=== PATIENT | male | born 1940 | race Caucasian/White ===

== ENCOUNTER → 2016-10-12 | Outpatient (CLI) | payer MEDICARE ==
--- NOTE | 2016-10-12 16:07 | RADRPT ---
EXAM DATE/TIME: 10/12/2016 13:23 [facility] COMPARISON: No previous studies available for comparison. INDICATIONS : Parkinsons disease. Unsteady gait. DOSE: 5.3 mCi Ioflupane Iodine-123 in 2.5 ml total volume MEDICATION(S): 130 mg Potasium Iodine PO one hour prior to injection SPECT IMAGIN.5 hrs. IMAGNG: SPECT/CT imaging with fusion was performed. RADIATION DOSE: 30.27 CTDIvol (mGy) MEDICAL HISTORY : Parkinson's. SURGICAL HISTORY : Cholecystectomy. Abdominal aortic aneurysm repair. Colostomy. Bilateral knee replacement, fatty tumo r removed and hernia repair. ENCOUNTER: Initial ACUITY: 1 month PAIN SCALE: 0/10 LOCATION: Head. TECHNIQUE: SPECT imaging of the brain was performed in sagittal, axial and coronal planes. Attenuation correctio n was performed with computed tomography and both the attenuation correction and non-attenuation dominga ected data sets were reviewed. FINDINGS: There is normal biodistribution of radionuclide with symmetric crescent-shaped areas of activity are in the striatum which appears distinct relative to the surrounding brain tissue. CONCLUSION: Normal dopamine transporter scan Ramírez Deleon MD on October 12, 2016 at 16:05 Board Certified Radiologist. This report was verified electronically.
== END ==
LOC: HRAD 08:16
DX: G20 Parkinson's disease (principal)
CPT/HCPCS: 78607; A9584

== ENCOUNTER 2017-12-06 10:00 | Inpatient (IN) | payer MEDICARE ==
[2017-12-06] VITALS (7 sets, daily range): BP systolic 138–166; BP diastolic 70–88; PULSE 57–72; RESP 16–18; TEMP 97.5–98.2; O2SAT 92–97
[~2017-12-06] VITALS: Ht 182.9 cm; Wt 122.1 kg
[2017-12-06] MEDS ORDERED: NEXI20CA PO (10:27)
[2017-12-06] MEDS ORDERED: VITA2000 PO (10:27)
[2017-12-06] MEDS ORDERED: CALC1TAB12 PO (10:27)
[2017-12-06] MEDS ORDERED: ROSU10 PO (10:27)
[2017-12-06] MEDS ORDERED: TERA10CA3 PO (10:27)
[2017-12-06] MEDS ORDERED: CARB25TA9 PO (10:27)
[2017-12-06] MEDS ORDERED: LEVO125T4 PO (10:27)
[2017-12-06] MEDS ORDERED: TAMS0.4C4 (10:27)
[2017-12-06] MEDS ORDERED: IBUP1TAB5 PO (10:27)
[2017-12-06] MEDS ORDERED: COEN400C (10:27)
[2017-12-06] MEDS ORDERED: MAGNESIUM HYDROXIDE SUSP 30 ML CUP PO PRN ×2 (10:30→17:30)
[2017-12-06] MEDS ORDERED: cloNIDine HCL 0.1 MG TAB PO PRN ×2 (10:30→17:30)
[2017-12-06] MEDS ORDERED: BISACODYL 10 MG SUPP RECTAL PRN ×2 (10:30→17:30)
[2017-12-06] MEDS ORDERED: SODIUM CHLORIDE 0.9% FLUSH 10 ML FLUSH IV FLUSH PRN (10:30)
[2017-12-06] MEDS ORDERED: ALUMINUM/MAGNESIUM/SIMETH 30 ML CUP PO PRN ×2 (10:30→17:30)
[2017-12-06] MEDS ORDERED: ONDANSETRON HCL 4 MG/2 ML VIAL IV PUSH PRN (10:30)
[2017-12-06] MEDS ORDERED: LACTULOSE SYRUP 20 GM/30 ML CUP PO PRN ×2 (10:30→17:30)
[2017-12-06] MEDS ORDERED: PROMETHAZINE INJ 25 MG/ML VIAL IM PRN (10:30)
[2017-12-06] MEDS ORDERED: SENNOSIDES 8.6 MG TAB PO PRN ×2 (10:30→17:30)
[2017-12-06] MEDS ORDERED: ACETAMINOPHEN 325 MG TAB PO PRN ×2 (10:30→17:30)
[2017-12-06] MEDS ORDERED: ceFAZolin 2 GM PREMIX 50 ML IV SCH (10:45)
[2017-12-06 10:46] LABS: AUTOMATED NEUTROPHIL # 6.2 TH/MM3 (1.8-7.7); BASOPHIL # 0.1 TH/MM3 (0-0.2); BASOPHIL % 0.6 % (0.0-2.0); EOSINOPHIL # 0.2 TH/MM3 (0-0.4); EOSINOPHIL % 2.7 % (0.0-4.0); HEMATOCRIT 38.8 % (39.0-51.0); HEMOGLOBIN 13.2 GM/DL (13.0-17.0); LYMPH % 17.8 % (9.0-44.0); LYMPHOCYTE # 1.6 TH/MM3 (1.0-4.8); MEAN CELL VOLUME 92.2 FL (80.0-100.0); MEAN CORPUSCULAR HEMOGLOBIN 31.4 PG (27.0-34.0); MEAN CORPUSCULAR HGB CONC 34.1 % (32.0-36.0); MEAN PLATELET VOLUME 8.6 FL (7.0-11.0); MONO % 9.1 % (0.0-8.0); MONOCYTE # 0.8 TH/MM3 (0-0.9); NEUT % 69.8 % (16.0-70.0); PLATELET COUNT 181 TH/MM3 (150-450); RED BLOOD COUNT 4.21 MIL/MM3 (4.50-5.90); WHITE BLOOD COUNT 8.9 TH/MM3 (4.0-11.0)
[2017-12-06 10:56] LABS: PROTHROMBIN TIME - PATIENT 10.6 SEC (9.8-11.6)
[2017-12-06] MEDS: SODIUM CHLOR 0.45% 1000 ML IV SCH (11:00)
[2017-12-06 11:04] LABS: BICARBONATE 29.4 MEQ/L (21.0-32.0); CALCIUM 9.1 MG/DL (8.5-10.1); CREATININE 0.95 MG/DL (0.60-1.30)
[2017-12-06] MEDS ORDERED: CEFAZOLIN INJ 2,000 MG in SODIUM CHLORIDE 0.9% INJ 100 ML IV SCH (11:15)
[2017-12-06] MEDS ORDERED: MIDAZOLAM HCL 2 MG/2 ML VIAL ONE (11:29)
[2017-12-06] MEDS: SODIUM CHLOR 0.9% 1000 ML INJ 1,000 ML IV SCH ×2 (12:45→23:43)
--- NOTE | 2017-12-06 13:04 | PD.RAD ---
Post Procedure Progress Note Pre Procedure Diagnosis: (1) Gait disturbance Post Procedure Diagnosis: (1) Gait disturbance Procedure Date: Dec 06, 2017 Supervising Radiologist: Garcia Kaufman JR Proceduralist/Assist: Mike Joseph RT(R), RT Columba(R) Anesthesia: Conscious Sedation Plan of Activity Patient to Unit: ROPU Patient Condition: Good See PACS Report for procedural detail/treatment Spinal Procedure Lumbar Drain T11 Fluid Description: Clear Findings: Catheter enters spinal canal at L3-4. Tip at T11-12 Jr. Mandeep,Garcia Mathur MD Dec 06, 2017 13:04
--- NOTE | 2017-12-06 14:10 | RADRPT ---
EXAM DATE/TIME: 12/06/2017 11:24 [facility] COMPARISON: No previous studies available for comparison. INDICATIONS : Patient in need of lumbar drain for normal pressure hydrocephalus evaluation. Gait disturbance. MEDICAL HISTORY : HTN CAD SURGIAL HISTORY : Hernia repair Bilat knee sx Gall bladder removal ENCOUNTER: Initial ACUITY: 3 months PAIN SCORE: 0/10 LOCATION: n/a LUMBAR PUNCTURE TIME: 11:54 hours FLUORO TIME: 2.0 minutes IMAGE SERIES: 0 SEDATION TIME: 15 minutes LEVEL: Tip of lumbar drain was placed at T11 DEVICE(S): 1.) 5 Cameroonian lumbar drain catheter PROCEDURE : 1. Fluoroscopically guided lumbar drain placement. 2. Conscious sedation with continuous EKG and oximetry monitoring. The risks, benefits and alternatives to the procedure were explained and verbal and written consent w as obtained. The site was prepped in sterile fashion. Full sterile technique was used, including ca p, mask, sterile gloves and gown and a large sterile sheet. Hand hygiene and 2% chlorhexidine and/or betadine/alcohol prep was utilized per protocol for cutaneous antisepsis. The skin and subcutaneous tissues were infiltrated with local anesthetic solution. With fluoroscopic guidance the lumbar thecal sac was punctured with a 14 gauge Touhy needle at the L3 -L4 level. A lumbar drain was placed with its tip at the T12 level and the catheter was sutured in pl karli. CSF was identified returning from the catheter at the termination of the procedure. Conscious sedation was performed with the prescribed dosages and duration as above in the presence of an independent trained radiology nurse to assist in the monitoring of the patient. EKG and oximetry remained stable throughout the procedure. The patient tolerated the procedure well and there were n o complications. The patient was sent to post anesthesia recovery in stable condition. CONCLUSION: Uncomplicated lumbar drain placement as above. Garcia Kaufman Jr., MD on December 06, 2017 at 14:07 Board Certified Radiologist. This report was verified electronically.
[2017-12-06] MEDS ORDERED: RESP: ALBUTEROL 2.5 MG/3 ML NEB (PRN) NEB (17:30)
[2017-12-06] MEDS ORDERED: ZOLPIDEM TARTRATE 5 MG TAB PO PRN (17:30)
[2017-12-06] MEDS: SODIUM CHLORIDE 0.9% FLUSH 10 ML FLUSH IV FLUSH SCH (20:08)
[2017-12-06] MEDS: DOCUSATE SODIUM 50 MG/SENNA 8.6 MG TAB PO SCH (20:08)
[2017-12-06] MEDS ORDERED: TERAZOSIN HCL 5 MG CAP PO SCH (21:00)
[2017-12-06] MEDS ORDERED: DOCUSATE SODIUM 50 MG/SENNA 8.6 MG TAB PO SCH (21:00)
[2017-12-06] MEDS: oxyCODONE/ACETAMINOPHEN 5 MG/325 MG TAB PO PRN (23:43)
[2017-12-07] VITALS: BP 155/74; PULSE 56; RESP 19; TEMP 98.2; O2SAT 95
[2017-12-07 04:00] VITALS: BP 152/70; PULSE 53; RESP 19; TEMP 97.7; O2SAT 97
[2017-12-07] MEDS ORDERED: LEVOTHYROXINE SODIUM 125 MCG TAB PO SCH (06:00)
[2017-12-07] MEDS: oxyCODONE/ACETAMINOPHEN 5 MG/325 MG TAB PO PRN (06:51)
[2017-12-07] MEDS: DOCUSATE SODIUM 50 MG/SENNA 8.6 MG TAB PO SCH (08:11)
[2017-12-07 08:14] VITALS: BP 155/90; PULSE 50; RESP 18; TEMP 97.6; O2SAT 96
[2017-12-07] MEDS: SODIUM CHLORIDE 0.9% FLUSH 10 ML FLUSH IV FLUSH SCH (08:28)
[2017-12-07] MEDS ORDERED: TAMSULOSIN HCL 0.4 MG CAP PO SCH (09:00)
[2017-12-07] MEDS ORDERED: PANTOPRAZOLE SOD 40 MG DELAYED RELEASE TAB PO SCH (09:00)
[2017-12-07] MEDS ORDERED: CARBIDOPA/LEVODOPA 25 MG/100 MG TAB PO SCH (09:00)
[2017-12-07] MEDS ORDERED: ATORVASTATIN 10 MG TAB PO SCH (09:00)
--- NOTE | 2017-12-07 09:53 | HHI.NSPN ---
History Chief Complaint: Difficulty walking in particular turning. Interval History 12/07/17: Pt underwent a temporary lumbar spinal drain on 12/06/17 for an evaluation of possible NPH with a predominant complaint of difficulty with walking and in particular turning with the feeling of his feet stuck to the door. Pt and Physical Therapy report he has had a dramatic improvement after the lumbar spinal drain was placed. Pt states occasional headache with drain in place. No radiculopathy or paresthesias in LEs. Review of Systems General: Negative for: fever, chills, insomnia Respiratory: Negative for: shortness of breath, cough, sputum Cardiovascular: Negative for: chest pain Gastrointestinal: Negative for: nausea, vomitting, diarrhea, constipation Exam Results Vital Signs Date Time Temp Pulse Resp B/P (MAP) Pulse Ox O2 Delivery O2 Flow Rate FiO2 12/07/17 08:14 97.6 50 18 155/90 (111) 96 12/06/17 10:38 Room Air Intake and Output 12/07/17 12/07/17 12/07/17 07:59 15:59 23:59 Output Total 1280 ml Balance -1280 ml Physical Examination General: Pt sitting up in chair with drain clamped. Eyes: Pupils equal. Sclera anicteric. Resp: CTA bilaterally Heart: NSR no murmurs Abd: Soft positive bs Skin: No cyanosis or erythema. Muscle: Moves LEs with good strength. PT and pt reported great improvement in his gait and in particular his ability to turn with much less magnetic feeling. Neuro: Pt awake and alert. Follows commands well. Speech clear and appropriate. Lab, Micro, Other Results Last Impressions Lumbar Puncture Fluoroscopy 12/06/17 0000 Signed Impressions: Service Date/Time: Wednesday, December 06, 2017 11:24 - CONCLUSION: Uncomplicated lumbar drain placement as above. Garcia Kaufman Jr., MD Laboratory Tests Test 12/06/17 10:30 White Blood Count 8.9 TH/MM3 Red Blood Count 4.21 MIL/MM3 Hemoglobin 13.2 GM/DL Hematocrit 38.8 % Mean Corpuscular Volume 92.2 FL Mean Corpuscular Hemoglobin 31.4 PG Mean Corpuscular Hemoglobin Concent 34.1 % Red Cell Distribution Width 13.0 % Platelet Count 181 TH/MM3 Mean Platelet Volume 8.6 FL Neutrophils (%) (Auto) 69.8 % Lymphocytes (%) (Auto) 17.8 % Monocytes (%) (Auto) 9.1 % Eosinophils (%) (Auto) 2.7 % Basophils (%) (Auto) 0.6 % Neutrophils # (Auto) 6.2 TH/MM3 Lymphocytes # (Auto) 1.6 TH/MM3 Monocytes # (Auto) 0.8 TH/MM3 Eosinophils # (Auto) 0.2 TH/MM3 Basophils # (Auto) 0.1 TH/MM3 CBC Comment DIFF FINAL Differential Comment Prothrombin Time 10.6 SEC Prothromb Time International Ratio 1.0 RATIO Activated Partial Thromboplast Time 23.8 SEC Blood Urea Nitrogen 13 MG/DL Creatinine 0.95 MG/DL Random Glucose 97 MG/DL Calcium Level 9.1 MG/DL Sodium Level 140 MEQ/L Potassium Level 4.2 MEQ/L Chloride Level 104 MEQ/L Carbon Dioxide Level 29.4 MEQ/L Anion Gap 7 MEQ/L Estimat Glomerular Filtration Rate 77 ML/MIN Medical Decision Making Impression and Plan A: 77 y/o M s/p temporary lumbar spinal drain placement for evaluation of possible NPH. P: Pt had a very positive response to lumbar spinal drain placement. We will discontinue lumbar spinal drain and keep on bedrest for 6 hours and d/c home. Pt will follow up in a week to discuss DIP UNIT OPERATOR shunt which I have already discussed with him today and he wants to proceed given his response. Addendum: Pt was placed on his side in bed. The lumbar spinal drain sutures were removed. The drain was removed and Steri strips were placed at the drain exit site. No further drainage was noted. Gauze and a bandage was placed to evaluate for drainage. Joseph Pascal Dec 07, 2017 9:53 am
[2017-12-07] MEDS: SODIUM CHLOR 0.45% 1000 ML IV SCH (11:00)
[2017-12-07 11:20] VITALS: BP 116/57; PULSE 62; RESP 18; TEMP 97.4; O2SAT 99
[2017-12-07 16:15] VITALS: BP 130/62; PULSE 60; RESP 20; TEMP 97.7; O2SAT 95
--- NOTE | 2017-12-07 16:22 | HHI.FF ---
Face to Face Verification Diagnosis: (1) Gait disturbance Physical Therapy Order: Evaluate and Treat, Improve ambulation, Strength and gait training Home Health Nursing Order: Nursing assessment with vital signs I have seen patient Ramírez Mckeon on 12/07/17. My clinical findings support the need for the requested home health care services because: Ltd mobility - disease progression Deconditioned w/ increased weakness High risk of falls I certify that my clinical findings support that this patient is homebound because: Unsteady gait/balance Unable to use public transportation Joseph Pascal Dec 07, 2017 4:22 pm
== END 2017-12-07 16:30 | disposition home health service (06) | DRG 57 ==
LOC: HRIP 10:00 → HROP 10:00 → HRIP 10:16 → HROP 14:00 → N05B 14:06
PROVIDERS: ADMIT Neurological Surgery; ATTEND Neurological Surgery
PROC: 009Y30Z Drainage of Lumbar Spinal Cord with Drainage Device, Percutaneous Approach (ICD-10-PCS; principal; 2017-12-06)
PROC: B01BZZZ Fluoroscopy of Spinal Cord (ICD-10-PCS; 2017-12-06)
DX: G91.2 (Idiopathic) normal pressure hydrocephalus (principal); R26.89 Other abnormalities of gait and mobility; I10 Essential (primary) hypertension; R51 Headache; I25.10 Atherosclerotic heart disease of native coronary artery without angina pectoris
CPT/HCPCS: 63741; 77003; 80048; 85025; 85610; 85730; 94150; 99152; C1755; J0690; J2250; J2405; J3010; J7030

== ENCOUNTER → 2018-01-02 | Outpatient (CLI) | payer MEDICARE ==
[~2018-01-02] MED LIST: CALC1TAB12 PO; CARB25TA9 PO; COEN400C; LEVO125T4 PO; NEXI20CA PO; ROSU10 PO; TAMS0.4C4; TERA10CA3 PO; VITA2000 PO
[2018-01-02 12:37] LABS: BASOPHIL % 0.5 % (0.0-2.0); EOSINOPHIL # 0.2 TH/MM3 (0-0.4); EOSINOPHIL % 2.3 % (0.0-4.0); HEMATOCRIT 38.2 % (39.0-51.0); HEMOGLOBIN 13.1 GM/DL (13.0-17.0); LYMPH % 19.7 % (9.0-44.0); LYMPHOCYTE # 1.5 TH/MM3 (1.0-4.8); MEAN CORPUSCULAR HEMOGLOBIN 31.2 PG (27.0-34.0); MEAN CORPUSCULAR HGB CONC 34.3 % (32.0-36.0); MEAN PLATELET VOLUME 8.8 FL (7.0-11.0); MONO % 10.1 % (0.0-8.0); MONOCYTE # 0.7 TH/MM3 (0-0.9); NEUT % 67.4 % (16.0-70.0); PLATELET COUNT 187 TH/MM3 (150-450); WHITE BLOOD COUNT 7.4 TH/MM3 (4.0-11.0)
[2018-01-02 12:44] LABS: INTERNATIONAL NORMALIZED RATIO 1.1 RATIO; PROTHROMBIN TIME - PATIENT 10.7 SEC (9.8-11.6)
[2018-01-02 12:56] LABS: ALBUMIN 3.9 GM/DL (3.4-5.0); ALT (GPT) 25 U/L (12-78); AST (GOT) 20 U/L (15-37); BICARBONATE 29.5 MEQ/L (21.0-32.0); BLOOD UREA NITROGEN 12 MG/DL (7-18); CALCIUM 9.5 MG/DL (8.5-10.1); CHLORIDE 102 MEQ/L (98-107); CREATININE 0.92 MG/DL (0.60-1.30); GLOMERULAR FILTRATION RATE 80 ML/MIN (>89); GLUCOSE,FASTING 85 MG/DL (74-99); SODIUM (NA) 139 MEQ/L (136-145)
[2018-01-02 12:59] LABS: ALKALINE PHOSPHATASE 63 U/L (45-117); TOTAL BILIRUBIN ADULT 0.4 MG/DL (0.2-1.0); TOTAL PROTEIN 8.1 GM/DL (6.4-8.2)
--- NOTE | 2018-01-02 13:27 | RADRPT ---
EXAM DATE/TIME: 01/02/2018 13:06 [facility] COMPARISON: No previous studies available for comparison. INDICATIONS : Evaluate for communicable diseases, pneumothorax, pneumonia. Preoperative examination for neurosurger y. MEDICAL HISTORY : None. SURGICAL HISTORY : None. ENCOUNTER: Initial ACUITY: 1 day PAIN SCORE: 0/10 LOCATION: Bilateral chest FINDINGS: PA and lateral views of the chest demonstrate the lungs to be symmetrically aerated without evidence of mass, confluent infiltrate or effusion. Mild streaky opacities noted in both lungs most consistent with scarring and/or fibrosis. The cardiomediastinal contours are unremarkable. Osseous structures are intact. CONCLUSION: 1. Mild streaky opacity in both lungs most characteristic of scarring and/or fibrosis. 2. No consolidation. Zacarias Claros MD on January 02, 2018 at 13:24 Board Certified Radiologist. This report was verified electronically.
--- NOTE | 2018-01-02 20:50 | EKG ---
Date Performed: 01/02/2018 Time Performed: 12:24:17 PTAGE: 77 years EKG: SINUS BRADYCARDIA WITH FIRST DEGREE AV BLOCK ABNORMAL ECG NO PREVIOUS TRACING DOCTOR: Solitario Goldsmith Interpretating Date/Time 01/02/2018 20:49:48
== END ==
LOC: CPRE 11:50
PROVIDERS: ATTEND Neurological Surgery
DX: Z01.810 Encounter for preprocedural cardiovascular examination (principal); Z01.812 Encounter for preprocedural laboratory examination; Z01.818 Encounter for other preprocedural examination; G91.2 (Idiopathic) normal pressure hydrocephalus; R94.31 Abnormal electrocardiogram [ECG] [EKG]
CPT/HCPCS: 36415; 71046; 80053; 85025; 85610; 85730; 93005

== ENCOUNTER 2018-01-04 06:10 | Inpatient (IN) | payer MEDICARE ==
--- NOTE | 2018-01-03 17:50 | MH ---
cc: Joseph Pascal Rohit K MD DATE OF ADMISSION: 01/04/2018 ADMITTING DIAGNOSIS: Normal pressure hydrocephalus. HISTORY OF PRESENT ILLNESS: This is a 77-year-old male who presented to us with complaints of difficulty with walking and poor balance for the last 2 years, although this has progressively worsened in the last 5 months. He states 6 months ago, he was able to golf, which he cannot do now. He denies any significant short-term memory loss, but has noticed urinary urgency. He had an MRI of the brain, which revealed moderate ventriculomegaly with periventricular white matter changes along with diffuse cerebral atrophy on 09/28/2017. He also underwent a temporary lumbar spinal drain and had significant improvement in his gait. The patient is wanting to proceed with a ventriculoperitoneal shunt placement. PAST MEDICAL HISTORY: Benign prostatic hypertrophy, hyperlipidemia, hypothyroidism, glaucoma. PAST SURGICAL HISTORY: Hernia mesh placement on 09/12/2013, knee surgery on 09/12/2012, removal of gallbladder, 2001. FAMILY HISTORY: Noncontributory to the patient's current condition. CURRENT MEDICATIONS: He is taking levothyroxine 125 mcg daily, Neupro 2 mg per 24 hours transdermal patch, ofloxacin 0.3% eyedrops, prednisolone 1% eyedrops, rosuvastatin 10 mg p.o. daily, Flomax 0.4 mg daily, terazosin 10 mg p.o. daily, Nexium 20 mg p.o. daily, ropinirole ER 2 mg extended release daily, vitamin D3 two capsules daily, CO-Q10 at 400 mg daily. ALLERGIES: FLU VACCINE. SOCIAL HISTORY: He is a former smoker. REVIEW OF SYSTEMS: CONSTITUTIONAL: He denies any fever or chills. EARS, NOSE AND THROAT: No pharyngitis, exudates or bloody drainage from his nose. CARDIOVASCULAR: He denies any chest pain or palpitations. RESPIRATORY: No cough or shortness of breath. GASTROINTESTINAL: No nausea, vomiting, abdominal pain. GENITOURINARY: No dysuria or hematuria. MUSCULOSKELETAL: He denies any weakness. Positive for difficulty with gait. NEUROLOGIC: Denies any difficulty with memory. He has difficulty with his gait. ENDOCRINE: No polyuria or polydipsia. HEMATOLOGIC: No bruising or bleeding tendencies. INTEGUMENTARY: No rashes or pruritus. PHYSICAL EXAMINATION: HEAD: Normocephalic, atraumatic. NECK: Supple. No carotid bruits LUNGS: Clear to auscultation bilaterally. HEART: Regular rate and rhythm. Normal S1, S2. ABDOMEN: Soft, nontender, positive bowel sounds. SKIN: Reveals no cyanosis or erythema. MUSCULOSKELETAL: He has 5/5 strength in the upper and lower extremities. He ambulates with a short shuffled gait that is magnetic, especially with trying to turn. NEUROLOGIC: He is awake, alert, and oriented. Cranial nerves 2-12 appear grossly intact. His speech is fluent. Comprehension is good. Sensation is intact in the upper and lower extremities. IMPRESSION: A 77-year-old male with complaints of difficulty walking and poor balance for the past 2 years ago, though progressively worse in the last 4 months. He does not have any short-term memory loss, but has noticed urinary urgency and difficulty with gait, especially magnetic features with turning. He had an MRI scan from 09/28/2017, which revealed moderate ventriculomegaly with periventricular white matter changes along with diffuse cerebral atrophy. He underwent temporary lumbar spinal drain and had significant improvement in his gait. PLAN: We have discussed treatment options with the patient and he is requesting that we proceed with a ventriculoperitoneal shunt placement. We have discussed the procedure as well as the risks, benefits, alternatives, and recovery time in great detail with the patient. We have discussed risks involved with surgery include but not limited to bleeding, infection, muscle weakness, voice hoarseness, difficulty swallowing, heart attack, stroke, blood clots, seizures, cerebral edema, among others. The patient states that he understands the procedure as well as the risks involved and he is requesting that we proceed. He is therefore scheduled accordingly. JAC Johnson/SURI , 05:16 PM , 05:49 PM
[~2018-01-04] VITALS: Ht 182.9 cm; Wt 124.0 kg
[~2018-01-04 06:10] MED LIST changes: -CALC1TAB12 PO; -CARB25TA9 PO
[2018-01-04] MEDS ORDERED: SODIUM CHLORIDE 0.9% 1000 ML IV SCH (06:30)
[2018-01-04] MEDS ORDERED: ACETAMINOPHEN 1000 MG/100 ML 0 ML IV ONE (06:34)
[2018-01-04] MEDS ORDERED: SODIUM CHLORID 0.9% 500 ML IV PRN (06:45)
[2018-01-04] MEDS ORDERED: METOPROLOL TARTRATE 25 MG TAB PO PRN (06:45)
[2018-01-04] MEDS ORDERED: POVIDONE IODINE 5% (ANTISEPSIS KIT) 4 APPLICATIONS EACH NARE PRN (06:45)
[2018-01-04] MEDS ORDERED: CHLORHEXIDINE GLUCONATE 2 % 1 PACK (2 CLOTHS) TOPICAL PRN (06:45)
[2018-01-04] MEDS ORDERED: LACTATED RINGER'S 1000 ML IV PRN (06:45)
[2018-01-04] MEDS ORDERED: VANCOMYCIN 1 GM/200 ML PREMIX IV SCH (06:45)
[2018-01-04] MEDS ORDERED: ACETAMINOPHEN 1000 MG/100 ML 100 ML IV ONE (06:54)
[2018-01-04] MEDS ORDERED: ARTIFICIAL TEARS OPTH OINT 3.5 APPLIC/3.5 GM TUBO ONE (07:04)
[2018-01-04] MEDS ORDERED: BUPIVACAINE/EPINEPHRINE 0.5% PF 30 ML VIAL ONE (07:10)
[2018-01-04] MEDS ORDERED: GELFOAM SIZE 100 ONE (07:10)
[2018-01-04] MEDS ORDERED: GENTAMICIN SULFATE 80 MG/2 ML VIAL ONE (07:10)
[2018-01-04] MEDS ORDERED: THROMBIN (TOPICAL) 5,000 UNIT VIAL ONE (07:10)
[2018-01-04] MEDS ORDERED: SUGAMMADEX SODIUM 200 MG/2 ML VIAL IV PUSH ONE (08:59)
[2018-01-04] MEDS ORDERED: NS + KCL 20 MEQ INJ 1,000 ML IV SCH (09:10)
[2018-01-04] MEDS ORDERED: PROMETHAZINE INJ 25 MG/ML VIAL IM PRN (09:15)
[2018-01-04] MEDS ORDERED: LORazepam 2 MG/ML VIAL IV PUSH PRN (09:15)
[2018-01-04] MEDS ORDERED: MORPHINE SULFATE 4 MG/ML INJ IV PUSH PRN (09:15)
[2018-01-04] MEDS ORDERED: ZOLPIDEM TARTRATE 5 MG TAB PO PRN (09:15)
[2018-01-04] MEDS ORDERED: MENTHOL LOZENGE BUCCAL PRN (09:15)
[2018-01-04] MEDS ORDERED: ONDANSETRON HCL 4 MG/2 ML VIAL IV PUSH PRN (09:15)
[2018-01-04] MEDS ORDERED: cloNIDine HCL 0.1 MG TAB PO PRN (09:15)
[2018-01-04] MEDS ORDERED: ACETAMINOPHEN/HYDROcodone 325 MG/10 MG TAB PO PRN ×2 (09:15)
[2018-01-04] MEDS ORDERED: MAGNESIUM HYDROXIDE SUSP 30 ML CUP PO PRN (09:15)
[2018-01-04] MEDS ORDERED: ALUMINUM/MAGNESIUM/SIMETH 30 ML CUP PO PRN (09:15)
[2018-01-04] MEDS ORDERED: BISACODYL 10 MG SUPP RECTAL PRN (09:15)
[2018-01-04] MEDS ORDERED: SENNOSIDES 8.6 MG TAB PO PRN (09:15)
[2018-01-04] MEDS ORDERED: RESP: ALBUTEROL 2.5 MG/3 ML NEB (PRN) NEB (09:15)
[2018-01-04] MEDS ORDERED: ACETAMINOPHEN 325 MG TAB PO PRN (09:15)
[2018-01-04] MEDS ORDERED: LACTULOSE SYRUP 20 GM/30 ML CUP PO PRN (09:15)
[2018-01-04] MEDS ORDERED: SODIUM CHLORIDE 0.9% FLUSH 10 ML FLUSH IV FLUSH PRN (09:15)
[2018-01-04] MEDS ORDERED: DEXAMETHASONE SOD PHOS 4 MG/ML VIAL IV ONE (10:03)
[2018-01-04] MEDS ORDERED: LIDOCAINE HCL 1% PF 5 ML SYRINGE OTHER ONE (10:03)
[2018-01-04] MEDS ORDERED: NEOSTIGMINE 5 MG/5 ML SYRINGE IV PUSH ONE (10:03)
[2018-01-04] MEDS ORDERED: ONDANSETRON HCL 4 MG/2 ML VIAL IV PUSH ONE (10:03)
[2018-01-04] MEDS ORDERED: PHENYLEPH/NS 1000 MCG/10 ML SYR IV ONE (10:03)
[2018-01-04] MEDS ORDERED: LACTATED RINGER'S 1000 ML INJ 1,000 ML IV ONE (10:03)
[2018-01-04] MEDS ORDERED: GLYCOPYRROLATE 1 MG/5 ML SYRINGE IV PUSH ONE (10:03)
[2018-01-04] MEDS ORDERED: PHENYLEPHRINE HCL 10 MG/ML VIAL IV ONE (10:03)
[2018-01-04] MEDS ORDERED: ePHEDrine/NS 25 MG/5 ML SYRINGE IV ONE (10:03)
[2018-01-04] MEDS ORDERED: ROCURONIUM INJ 50 MG/5 ML SYRINGE IV PUSH ONE (10:03)
[2018-01-04] MEDS ORDERED: PROPOFOL 200 MG/20 ML AMP IV ONE (10:03)
--- NOTE | 2018-01-04 10:28 | PD.OP ---
Jessy Martinez MD Operative Report Date of Surgery: Jan 04, 2018 Preoperative Diagnosis: Normal-pressure hydrocephalus Postoperative Diagnosis: Same Procedure: Right frontal ventriculoperitoneal shunt placement with Codman programmable valve Anesthesia: General endotracheal by Ricarda tomlinson Surgeon: Miah Roy MD Equipment Washer(s): Merly Duncan Operation and Findings: Following administration of general endotracheal anesthesia, patient was placed in a supine position and a Christiansen catheter placed along with sequential compression devices. Vancomycin 1 g was and administered intravenously. The head secured in donut and turned 30 to the left side and a shoulder roll placed in the right side and all pressure points adequately padded. The right frontal parietal occipital anterior neck and chest and abdomen area was shaved and prepped with a Betadine solution and Chloraprep. Draping with Ioban also undertaken along with the usual sterile draping. Using landmarks of 11 cm behind the nasion and 3 cm right of the midline a curvilinear right frontal incision was made after infiltrating the skin was 0.5% Marcaine with epinephrine solution. A mary jane hole was made with an automatic wood milling machine tender and the underlying dura cauterized with bipolar cautery and opened in a cruciate format. Right subcostal abdominal incision site was then infiltrated with 0.5% Marcaine with epinephrine solution and incision made extending down through the anterior fascia of the rectus sheath and then the posterior fascia also incised and the peritoneal wall identified and also incised in a 3-0 silk pursestring suture was been placed around the opening. A subcutaneous tunnel was then created between the frontal and the abdominal incision site with a small interim incision in the neck and the bactiseal Codman peritoneal catheter was then tunneled through. The catheter was connected to a [employer] Codman programmable valve set at 100 mm a water setting with the anti-siphon device. The ventricular catheter was then passed the 6 cm in depth and clear CSF encountered and this was then connected to the proximal reservoir valve with a 2 -0 silk tie. Good distal CSF flow run off was noted from the peritoneal catheter which was then dropped into the peritoneum and the pursestring suture was tied along with the approximation of the anterior rectus sheath with 3-0 Vicryl interposition and 3-0 Vicryl subcuticular cyst also place an interrupted fashion and final skin closure with steven. Incision sites were irrigated with the saline solution prior to closure. The right frontal and small neck incision areas were then also approximated with 3-0 Vicryl galeal stitches and steven. Sterile dressings then applied and the patient extubated and taken recovery room. There were no intraoperative complications and all sponge and needle, was correct at the end of the procedure. Estimated blood loss less than 25 cc. Miah Roy MD Jan 04, 2018 10:28
[2018-01-04] MEDS ORDERED: DO NOT ADM ANY ANTICOAGULANT DRUGS PRN (10:46)
[2018-01-04] MEDS ORDERED: VANCOMYCIN HCL 1000 MG VIAL ONE (10:51)
[2018-01-04] MEDS ORDERED: MIDAZOLAM HCL 2 MG/2 ML VIAL ONE (10:52)
[2018-01-04] MEDS ORDERED: SODIUM CHLOR 0.9% 250 ML INJ 250 ML ONE (10:52)
[2018-01-04] MEDS ORDERED: *morphine SULFATE 4 MG/ML PERIprocedure ONLY ONE ×3 (11:06→11:28)
[2018-01-04] MEDS ORDERED: HYDROmorphone HCL PF 0.5 MG/0.5 ML SYRINGE ONE (12:34)
--- NOTE | 2018-01-04 15:19 | RADRPT ---
EXAM DATE/TIME: 01/04/2018 14:47 [facility] COMPARISON: No previous studies available for comparison. INDICATIONS : Post op shunt placement RADIATION DOSE: 63.34 CTDIvol (mGy) MEDICAL HISTORY : SURGICAL HISTORY : Abdominal aortic aneurysm repair. ENCOUNTER: Initial ACUITY: 1 day PAIN SCALE: 3/10 LOCATION: cranial TECHNIQUE: Multiple contiguous axial images were obtained of the head. Using automated exposure control and adj ustment of the mA and/or kV according to patient size, radiation dose was kept as low as reasonably a chievable to obtain optimal diagnostic quality images. DICOM format image data is available electro nically for review and comparison. FINDINGS: CEREBRUM: Right frontal ventriculostomy catheter is in good position. Minimal pneumocephalus. Ventricle remain prominent in size. No evidence of midline shift, mass lesion, hemorrhage or acute infarction. No ex tra-axial fluid collections are seen. POSTERIOR FOSSA: The cerebellum and brainstem are intact. The 4th ventricle is midline. The cerebellopontine angle i s unremarkable. EXTRACRANIAL: The visualized portion of the orbits is intact. Maxillary sinus disease SKULL: The calvaria is intact. No evidence of skull fracture. CONCLUSION: Ventriculostomy catheter is in excellent position. No evidence of hemorrhage. Ventricles remain promi nent in size.. Ede Davis MD on January 04, 2018 at 15:15 Board Certified Radiologist. This report was verified electronically.
[2018-01-04 16:00] VITALS: BP 144/76; PULSE 65; RESP 18; TEMP 97.6; O2SAT 94
[2018-01-04 19:31] VITALS: BP 126/63; PULSE 68; RESP 16; TEMP 98.1; O2SAT 94; O2SAT 97
[2018-01-04] MEDS ORDERED: TAMSULOSIN HCL 0.4 MG CAP PO SCH (21:00)
[2018-01-04] MEDS ORDERED: TERAZOSIN HCL 5 MG CAP PO SCH (21:00)
[2018-01-04] MEDS ORDERED: SODIUM CHLORIDE 0.9% FLUSH 10 ML FLUSH IV FLUSH SCH (21:00)
[2018-01-04] MEDS: DOCUSATE SODIUM 50 MG/SENNA 8.6 MG TAB PO SCH (21:26)
[2018-01-04] MEDS: CHOLECALCIFEROL (VIT D3) 1000 UNIT TAB PO SCH (21:26)
[2018-01-05 00:45] VITALS: BP 130/62; PULSE 69; RESP 18; TEMP 98; O2SAT 97
[2018-01-05 03:29] VITALS: O2SAT 94
[2018-01-05] MEDS ORDERED: LEVOTHYROXINE SODIUM 125 MCG TAB PO SCH (06:00)
[2018-01-05 08:00] VITALS: BP 127/63; PULSE 52; RESP 21; TEMP 97.5; O2SAT 96
--- NOTE | 2018-01-05 08:54 | HHI.NSPN ---
History Chief Complaint: Unsteady gait. Interval History 01/05/18: Pt underwent a right FILM LOADER shunt placement on 01/04/18. He states he is feeling well. He felt a little unsteady with ambulating with walker but doing better than preop. No h/a, n/v. Review of Systems General: Negative for: fever, chills, insomnia Respiratory: Negative for: shortness of breath, cough, sputum Cardiovascular: Negative for: chest pain Gastrointestinal: Negative for: nausea, vomitting, diarrhea, constipation Exam Results Vital Signs Date Time Temp Pulse Resp B/P (MAP) Pulse Ox O2 Delivery O2 Flow Rate FiO2 01/05/18 03:29 94 Nasal Cannula 2.00 01/05/18 00:45 98.0 69 18 130/62 (84) Intake and Output 01/05/18 01/05/18 01/06/18 08:00 16:00 00:00 Intake Total 850 ml Output Total 3430 ml Balance -2580 ml Physical Examination General: Pt sitting up in chair in NAD. Eyes: Pupils equal. Sclera anicteric. Resp: CTA bilaterally Heart: NSR no murmurs Abd: Soft positive bs Skin: Incisions clean and dry. New bandages placed. Muscle: Moves all 4 extremities with symmetric strength. Neuro: Pt awake and alert. Sitting up in chair. Follows commands well. Speech clear and appropriate. Lab, Micro, Other Results Last Impressions Head CT 01/04/18 0000 Signed Impressions: Service Date/Time: Thursday, January 04, 2018 14:47 - CONCLUSION: Ventriculostomy catheter is in excellent position. No evidence of hemorrhage. Ventricles remain prominent in size.. Ede Davis MD Medical Decision Making Impression and Plan A: 77 y/o M s/p right FILM LOADER shunt for NPH P: Discharge pt home Keep incisions clean and dry. No pushing, pulling, lifting, carrying more than 5 pounds No driving. Encouraged frequent ambulation. Joseph Pascal Jan 05, 2018 8:54 am
[2018-01-05] MEDS ORDERED: ATORVASTATIN 20 MG TAB PO SCH (09:00)
[2018-01-05] MEDS ORDERED: PANTOPRAZOLE SOD 20 MG DELAYED RELEASE TAB PO SCH (09:00)
[2018-01-05] MEDS: DOCUSATE SODIUM 50 MG/SENNA 8.6 MG TAB PO SCH (09:18)
[2018-01-05] MEDS: CHOLECALCIFEROL (VIT D3) 1000 UNIT TAB PO SCH (09:18)
[2018-01-05 09:23] VITALS: O2SAT 94
== END 2018-01-05 10:04 | disposition home or self-care (01) | DRG 33 ==
LOC: HSDI 06:10 → N05B 14:59
PROVIDERS: ADMIT Neurological Surgery; ATTEND Neurological Surgery
PROC: 00160J6 Bypass Cerebral Ventricle to Peritoneal Cavity with Synthetic Substitute, Open Approach (ICD-10-PCS; principal; 2018-01-05)
DX: G91.2 (Idiopathic) normal pressure hydrocephalus (principal); G93.89 Other specified disorders of brain; G31.9 Degenerative disease of nervous system, unspecified; N40.1 Benign prostatic hyperplasia with lower urinary tract symptoms; E78.5 Hyperlipidemia, unspecified; E03.9 Hypothyroidism, unspecified; R39.15 Urgency of urination; R26.2 Difficulty in walking, not elsewhere classified; Z87.891 Personal history of nicotine dependence
CPT/HCPCS: 70450; J0131; J0690; J1100; J1170; J1580; J2250; J2270; J2370; J2405; J2710; J3010; J3370; J3480; J7050; J7120